=== PATIENT | male | born 1960 | race Caucasian/White ===

== ENCOUNTER 2018-08-24 20:52 | Emergency (ER) | payer OTHER, BC ==
[2018-08-24 20:59] VITALS: BP 174/86
[2018-08-24] MEDS ORDERED: LIDOCAINE 5% (700 MG) TRANSDERMAL ADH..PATCH TP ONE (22:39)
[2018-08-24] MEDS ORDERED: ACETAMINOPHEN 325 MG TABLET PO ONE (22:39)
[2018-08-24] MEDS ORDERED: KETOROLAC TROMETHAMINE 60 MG/2 ML SDV IM ONE (22:39)
--- NOTE | 2018-08-24 23:18 | RADIOLOGY REPORT (SQ) ---
CLINICAL HISTORY: fall, trauma COMPARISON: None. TECHNIQUE: XR CHEST 2 VIEWS 08/24/2018 10:38 PM CDT FINDINGS: Cardiac silhouette is normal in size. Lungs are clear without consolidation, atelectasis, mass or edema. There is no pleural effusion. There is no pneumothorax. There are no acute osseous findings. IMPRESSION: Clear lungs.
[2018-08-24] MEDS ORDERED: DIPH/PERTUSS(ACELL)/TETANUS VAC/PF 0.5 ML SYR (>=10YO) IM ONE (23:21)
--- NOTE | 2018-08-24 23:25 | ER Document Report ---
ED General - General Chief Complaint: Back Injury Stated Complaint: BACK INJURY Time Seen by Provider: 08/24/18 21:29 Primary Care Provider: SABRINA PAINTER MD [Primary Care Provider] - Follow up as needed Notes: Patient is a 57-year-old male with a past medical history of essential hypertension who presents after falling off of a ladder while on top of the RV. Patient reports the ladder slid out from underneath him causing him to fall down and landed on his left shoulder and left back. He states that he landed on grass. States that he had an immediate onset of throbbing, constant, diffuse pain to his left posterior ribs and left shoulder. Regards the pain is being mild to moderate. Constant since onset. Movement worsens the pain. Nothing improves the pain. No history of similar injuries in the past. Denies head or neck trauma. No bowel or bladder incontinence, urinary retention, focal weakness, numbness, vomiting or confusion. Does not take any form of anticoagulation. Has not seen his primary care physician regarding today's concerns. TRAVEL OUTSIDE OF THE [place] IN LAST 30 DAYS: No - Related Data Allergies/Adverse Reactions: aspirin [Aspirin] Allergy (Intermediate, Verified 04/06/14 04:02) Hives Past Medical History - General Information source: Patient - Social History Smoking Status: Never Smoker Frequency of alcohol use: Couple of beers a day Drug Abuse: None Lives with: Spouse/Significant other Family History: Reviewed & Not Pertinent Patient has suicidal ideation: No Patient has homicidal ideation: No Renal/ Medical History: Denies: Hx Peritoneal Dialysis Past Surgical History: Reports: Hx Orthopedic Surgery - knee, Hx Tonsillectomy - Immunizations Hx Diphtheria, Pertussis, Tetanus Vaccination: Yes Review of Systems - Review of Systems Notes: Constitutional: Negative for fever. Eyes: Negative for visual changes. ENT: Negative for facial injury Cardiovascular: Negative for chest injury. Respiratory: Negative for shortness of breath. Gastrointestinal: Negative for abdominal injury. Genitourinary: Negative for genital injury Musculoskeletal: Positive for left shoulder pain, left lower rib pain Skin: Positive for abrasions Neurological: Negative for head injury. Physical Exam - Vital signs Vitals: Temp Pulse Resp BP Pulse Ox 98.0 F 69 18 174/86 H 96 08/24/18 20:58 08/24/18 20:58 08/24/18 20:58 08/24/18 20:58 08/24/18 20:58 Interpretation: Hypertensive Notes: PHYSICAL EXAMINATION: GENERAL: Well-appearing, no acute distress. HEAD: Atraumatic, normocephalic. EYES: Pupils equal round and reactive to light, extraocular movements intact, sclera anicteric, conjunctiva are normal. ENT: nares patent, no oral pharyngeal trauma. No hemotympanum, no Miller's sign, no raccoon eyes. NECK: No midline cervical spine tenderness. Patient able to move their head to 45 bilaterally without any discomfort. LUNGS: Breath sounds clear to auscultation bilaterally and equal. No wheezes rales or rhonchi. HEART: Regular rate and rhythm without murmurs. CHEST WALL: No ecchymosis over the chest wall. Pain on palpation of the left lower ribs ABDOMEN: Soft, nontender, normoactive bowel sounds. No guarding, no rebound. No abdominal bruising EXTREMITIES: Normal range of motion, no pitting or edema. No long bone deformities. BACK: No midline spinal tenderness, step-offs, or deformities. NEUROLOGICAL: Face symmetric. Tongue protrudes midline. Extraocular motions intact. Pupils are 2 mm and equally reactive. Normal speech, normal gait. 5 out of 5 strength in both the distal and proximal upper and lower extremities bi laterally. Sensation is grossly intact throughout. Finger to nose testing normal. Pronator drift normal. PSYCH: Normal mood, normal affect. SKIN: Warm, Dry, normal turgor, abrasions over the left shoulder and over the left tibial surface Course - Re-evaluation Re-evalutation: 08/24/18 23:22 Presentation of a well patient in no acute distress, vitals within normal limits after a fall. No focal neurologic deficits on exam, no evidence of basilar skull fracture on exam without evidence of hemotympanum, raccoon eyes, or shaina auricular hematoma. No papilledema. Patient is not on anticoagulation. GCS is 15. No loss of consciousness. No episodes of vomiting. Patient is therefore negative via [place] head CT criteria and CT imaging will not be obtained at this time. Patient also evaluated by nexus criteria and found to be negative. Patient is also negative by gambian C-spine criteria. No clinical evidence to suggest increased risk of cervical spine fracture. No indication for further imaging of the cervical spine. Patient has no focal deformities or limited range of motion in any joint space to indicate need for extremity imaging. Patient did however have bruising over the left shoulder. X-ray is negative for any evidence of acute fracture or dislocation. Chest and abdominal exam are benign without any focal bruising over the chest or abdominal wall. Patient did have some mild tenderness on palpation to the left lower ribs, x-ray without evidence of acute fracture or pulmonary contusion. Patient has no flank tenderness. There is no obvious findings on trauma exam today and therefore no further imaging or evaluation will be obtained at this time. I've instructed the patient to return to emergency room immediately should they have any worsening or new symptoms that are concerning to them. - Vital Signs Vital signs: Temp Pulse Resp BP Pulse Ox 98.0 F 69 18 174/86 H 96 08/24/18 20:58 08/24/18 20:58 08/24/18 20:58 08/24/18 20:58 08/24/18 20:58 - Diagnostic Test Radiology reviewed: Image reviewed, Reports reviewed Radiology results interpreted by me: 08/24/18 23:23 Left shoulder x-ray: No acute fracture or dislocation Chest x-ray: No rib fractures, pulmonary contusion or pneumothorax Discharge - Discharge Clinical Impression: Rib pain on left side Fall Qualifiers: Encounter type: initial encounter Qualified Code(s): W19.XXXA - Unspecified fall, initial encounter Injury of left shoulder Qualifiers: Encounter type: initial encounter Qualified Code(s): S49.92XA - Unspecified injury of left shoulder and upper arm, initial encounter Condition: Good Disposition: HOME, SELF-CARE Additional Instructions: You have been seen in the Emergency Department (ED) today following a fall. Your workup today did not reveal any injuries that require you to stay in the hospital. Your x-rays are normal today. You can expect, though, to be stiff and sore for the next several days. Continue to take her methocarbamol and Celebrex as normal at home. You may also take Tylenol 1000 mg every 6 hours in addition to these medications. You can apply a hot pack or electric heating pad to the sore areas. You can also use topical "Aspercreme with lidocaine" to sore areas as needed. Please follow up with your primary care doctor as soon as possible regarding to day's ED visit and your recent accident. Call your doctor or return to the ED if you develop a sudden or severe headache, confusion, slurred speech, facial droop, weakness or numbness in any arm or le g, extreme fatigue, vomiting more than two times, severe abdominal pain, or other symptoms that concern you. Referrals: SABRINA PAINTER MD [Primary Care Provider] - Follow up in 3-5 days
--- NOTE | 2018-08-24 23:26 | RADIOLOGY REPORT (SQ) ---
EXAM DESCRIPTION: XR LEFT SHOULDER 3 VIEWS COMPLETED DATE/TME: 08/24/2018 22:38 CLINICAL HISTORY: 57 years, Male, fall, trauma COMPARISON: None. NUMBER OF VIEWS: TECHNIQUE: LIMITATIONS: None. FINDINGS: No fracture or dislocation. The acromioclavicular joint appears intact. Mineralization of bone appears normal. IMPRESSION: No fracture or dislocation. copyright 2010 [employer]- All Rights Reserved
== END 2018-08-24 23:54 | disposition home or self-care (01) ==
LOC: ER 20:52
DX: S49.92XA Unspecified injury of left shoulder and upper arm, initial encounter (principal); R07.81 Pleurodynia; M25.512 Pain in left shoulder; M54.9 Dorsalgia, unspecified; I10 Essential (primary) hypertension; W11.XXXA Fall on and from ladder, initial encounter
CPT/HCPCS: 99283; 96372; 90471; 71046; 73030; 90715; J1885